=== PATIENT | female | born 2000 | race Caucasian/White ===

== ENCOUNTER 2021-12-14 18:30 | Outpatient (CLI) | payer MEDICARE, SELFPAY | END 2021-12-14 18:31 | disposition home or self-care (01) | LOC: LKVREF 12-18 09:54 | PROVIDERS: Visit Provider Nurse Practitioner Family | DX: R30.0 Dysuria (principal); N39.0 Urinary tract infection, site not specified | CPT/HCPCS: 87086; 87186 ==